=== PATIENT | male | born 2005 | race Caucasian/White ===

== ENCOUNTER 2024-09-24 17:04 | Emergency (ER) | payer BC, SELFPAY ==
[2024-09-24 17:10] VITALS: BP 148/102
[2024-09-24 17:39] LABS: % Basophils 0.7 % (0-2); % Eosinophils 9.7 % (0-6); % Immature Granulocytes 0.3 % (0-0.5); % Lymphocytes 20.7 % (20.5-51.1); % Monocytes 5.8 % (1.7-9.3); % Neutrophils 62.8 % (42.2-75.2); Absolute Basophils 0.1 10^3/uL (0-0.2); Absolute Eosinophils 1.2 10^3/uL (0-0.7); Absolute Lymphocytes 2.6 10^3/uL (1.2-3.4); Absolute Monocytes 0.7 10^3/uL (0.1-0.6); Hemoglobin 17.3 g/dL (13.0-18.0); Mean Corp Hgb Conc. 34.6 g/dL (33.0-37.0); Mean Corpuscular Volume 89.6 fL (80.0-94.0); Mean Platelet Volume 9.5 fL (7.4-10.4); Nucleated Red Blood Cells % 0 % (-); Platelet Count 295 10^3/uL (130-400); Red Blood Cell Count 5.58 10^6/uL (4.70-6.10); Red Cell Dist. Width 12.3 % (11.5-14.5); White Blood Cell Count 12.7 10^3/uL (4.8-10.8)
[2024-09-24 17:55] LABS: ALT (SGPT) 38 U/L (0-50); AST (SGOT) 34 U/L (17-59); Albumin 4.9 g/dl (3.5-5.0); Alkaline Phosphatase 78 U/L (38-126); Blood Urea Nitrogen 16 mg/dl (9-20); Calcium 9.9 mg/dl (8.4-10.2); Carbon Dioxide 27 mmol/L (22-30); Chloride 100 mmol/L (98-107); Glucose 109 mg/dl (70-99); Potassium 4.2 mmol/L (3.5-5.1); Sodium 136 mmol/L (135-145); Total Bilirubin 0.4 mg/dl (0.2-1.3); Total Protein 7.7 g/dl (6.3-8.2); eGFR > 60.00
[2024-09-24 17:56] LABS: COVID-19 Antigen Negative (Negative)
[2024-09-24 18:03] LABS: Troponin I < 0.012 ng/ml
[2024-09-24 18:32] VITALS: BP 137/89
--- NOTE | 2024-09-24 18:57 | ED.GENMED ---
History of Present Illness
General
Chief Complaint: Breathing Problem
Time Seen by Provider: 09/24/24 18:43
History of Present Illness
History of Present Illness:
Patient is a 19-year-old male with history of asthma on rescue inhaler presenting to the emergency room with an asthma exacerbation. Patient is for the past few days given the change in weather his asthma has been flaring up. Today when he was
walking he started to have difficulty breathing as well as a tight chest. This felt like prior PACs. He did take his inhaler without relief. Unfortunately ran out of his nebulizer as he was unable to take it. He was on a daily inhaler however
given insurance issues has been off of it for 2 years. Patient denies any fevers chills or URI symptoms. No recent sick contacts. He has never been admitted for his asthma before.
Phy Exam
Physical Exam
Physical Exam:
GENERAL: in no acute distress
HEENT: normocephalic, extraocular movements intact, moist oral mucosa
NECK: normal inspection
RESPIRATORY: no respiratory distress, diminished air movement bilaterally
CARDIOVASCULAR: regular rate and rhythm
ABDOMEN/: soft, non-distended, non-tender to palpation, no rebound or guarding
EXTREMITIES: non-tender, no edema/swelling
NEUROLOGIC: awake and alert, moves all extremities
SKIN: warm
Course
Orders/Labs/Results
Orders:
Orders
09/24/24 17:12
Electrocardiogram (*1) Urgent
Reason for Study: Chest Pain
EKG- Treatment ONCE
CR Chest - 2 Views Urgent
Comment:
Reason For Exam: shortness of breath
09/24/24 17:26
COVID-19 Antigen Urgent
Source: Nasal Swab
Complete Blood Count/With Diff Urgent
Comprehensive Metabolic Panel Urgent
Troponin I Urgent
Influenza A+B Rapid Molecular Urgent
MARCELINA Source: Nasal Swab
Specimen Description:
09/24/24 18:56
Dexamethasone Pf [Decadron] 10 mg PO NOW STA
Ipratropium/Albuterol Sulfate [Duoneb] 3 ml INH R NOW STA
Abnormal Lab Results
09/24/24
17:26
WBC 12.7 H 10^3/uL
(4.8-10.8)
Absolute Neuts (auto) 8.0 H 10^3/uL
(1.4-6.5)
Absolute Monos (auto) 0.7 H 10^3/uL
(0.1-0.6)
Absolute Eos (auto) 1.2 H 10^3/uL
(0-0.7)
Eosinophils % 9.7 H %
(0-6)
Glucose 109 H mg/dl
(70-99)
09/24/24 17:26
09/24/24 17:26
Vital Signs
Initial and Last Documented VS:
Initial Vital Signs
Temp Pulse Resp BP Pulse Ox
97.7 F 108 18 148/102 97
09/24/24 17:10 09/24/24 17:10 09/24/24 17:10 09/24/24 17:10 09/24/24 17:10
Last Documented Vital Signs
Temp Pulse Resp BP Pulse Ox
97.7 F 89 16 137/89 100
09/24/24 17:10 09/24/24 18:34 09/24/24 18:34 09/24/24 18:32 09/24/24 19:15
MDM/Problems Addressed
Differential Diagnosis Includes:
Patient is a 19-year-old male with history of asthma presenting to the emergency department with difficulty breathing. Vitals unremarkable on exam patient does have diminished air movement bilaterally. Differential consist of asthma exacerbation
versus viral URI versus pneumonia though less likely. Blood work obtained prior to evaluation is unremarkable. COVID is negative. Chest x-ray per my interpretation with no acute abnormality. Will give nebulizer treatment as well as steroids.
*Critical Care Note
Total Time (30-74mins, 75-104mins- exclusive of procedures): Not Applicable
Update Note
Update Note:
On reevaluation patient with much better air movement. He is feeling much better as well. Will discharge at this time. Will give steroid prescription and nebulizers as needed. Patient given education about the benefit of the long-term inhaler.
Patient's mother will call insurance as well as look into [employer] to find affordability options.
ED Attending Note
-
Portions of this chart may have been created with voice recognition software.� Occasional wrong word or��sound alike� substitutions may have occurred due to the inherent limitations of voice recognition software.
Discharge Plan
Departure
Patient Disposition: Home (Routine Discharge)
Date of Disposition: 09/24/24
Time of Disposition: 20:00
Patient with high blood pressure during this ER visit?: No
Discharge Problem:
Asthma exacerbation
Instructions: Asthma, Adult (DC)
Prescriptions:
New
albuterol sulfate 5 mg/mL solution for nebulization
5 mg inhalation Q6H PRN (Reason: shortness of breath or wheezing) Qty: 75 0RF
prednisone 20 mg tablet
40 mg PO DAILY 5 Days Qty: 10 0RF
Rx Instructions:
start on 09/25
Referrals:
Marvin Ann, [Family Provider] -
Activity Restrictions/Additional Instructions:
You were seen in the Emergency Department today for an asthma exacerbation. While you were here we performed blood work, which was reassuring. Please take the steroids as prescribed and the nebulizers as needed.
We would like for you to follow up with your primary care physician for further evaluation. If you experience fever, worsening of your symptoms, or develop any other new or concerning symptoms, please return to the Emergency Department immediately.
Please see the attached sheet for additional information.
[facility], [address] [place] [address], [place] [id number]
Interventions
Interventions:
ED- Cardiac Assessment Last Done: 09/24/24 19:15
ED- Pulmonary Assessment Last Done: 09/24/24 19:15
Discharge Date and Time
Print Language: MOROCCAN
[2024-09-24 19:00] VITALS: BP 121/90
[2024-09-24] MEDS: DECADRON 10 MG PO (19:04)
[2024-09-24] MEDS: DUONEB 3 ML INH (19:04)
== END 2024-09-24 20:15 | disposition home or self-care (01) ==
LOC: EMR 17:04
PROVIDERS: Emergency Medicine; EMERGENCY PHYSICIAN Student in an Organized Health Care Education/Training Program; FAMILY PHYSICIAN Family Medicine
DX: J45.901 Unspecified asthma with (acute) exacerbation (principal); R07.89 Other chest pain; Z11.52 Encounter for screening for COVID-19
CPT/HCPCS: 99283; 94640; 71046; 80053; 84484; 85025; 87502; 87811; 93005